=== PATIENT | male | born 1995 | race Caucasian/White ===

== ENCOUNTER 2017-10-29 23:17 | Emergency (ER) | payer OTHER ==
[2017-10-29 23:22] VITALS: BP 161/90; BMI 30.7
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
[2017-10-30] MEDS ORDERED: AUGMENTIN 500 MG/125 MG TAB PO ONE ×2 (00:56→00:57)
[2017-10-30] MEDS ORDERED: HYDROGEN PEROXIDE 3% ONE (00:58)
[2017-10-30] MEDS ORDERED: NEOSPORIN OINT ONE (01:01)
[2017-10-30] MEDS ORDERED: NEOSPORIN OINT TOP ONE (01:07)
[2017-10-30 02:28] LABS: ALANINE AMINOTRANSFERASE 103 Units/L (12-78); ALBUMIN 4.1 g/dL (3.4-5.0); ALKALINE PHOSPHATASE 67 Units/L (46-116); ASPARTATE AMINO TRANSFERASE 91 Units/L (15-37); BLOOD UREA NITROGEN 12 mg/dL (7-18); CALCIUM 9.2 mg/dL (8.5-10.1); CARBON DIOXIDE 28.4 mmol/L (21-32); CHLORIDE 103 mmol/L (98-107); CREATININE 1.36 mg/dL (0.70-1.30); SODIUM 140 mmol/L (136-145); TOTAL PROTEIN 7.8 g/dL (6.4-8.2); eGFR BLACK RACES > 60 (>60); eGFR NON BLACK RACES > 60 (>60)
== END 2017-10-30 01:50 | disposition home or self-care (01) ==
LOC: ER 23:17
DX: S60.511A Abrasion of right hand, initial encounter (principal); Z77.21 Contact with and (suspected) exposure to potentially hazardous body fluids; Y04.1XXA Assault by human bite, initial encounter; Y04.0XXA Assault by unarmed brawl or fight, initial encounter; Y92.9 Unspecified place or not applicable
CPT/HCPCS: 36415; 80053; 86701; 86706; 86803; 99282